=== PATIENT | male | born 1965 | race Caucasian/White ===

== ENCOUNTER 2018-09-29 07:14 | Outpatient (CLI) | payer OTHER | END 2018-09-29 07:16 | disposition home or self-care (01) | LOC: NUCLEAR 07:14 | DX: I20.9 Angina pectoris, unspecified (principal) | CPT/HCPCS: 78452; 93017; A9500 ==

== ENCOUNTER 2022-11-17 08:57 | Outpatient (CLI) | payer OTHER | END 2022-11-17 09:10 | disposition home or self-care (01) | LOC: MRI 08:57 | PROVIDERS: ATTEND Urology | DX: E29.1 Testicular hypofunction (principal); F52.21 Male erectile disorder | CPT/HCPCS: 70551 ==

== ENCOUNTER → 2022-11-17 09:09 | Outpatient (CLI) | payer OTHER | END | disposition home or self-care (01) | LOC: LAB 09:09 | PROVIDERS: ATTEND Urology | DX: E29.1 Testicular hypofunction (principal); F52.21 Male erectile disorder ==